=== PATIENT | female | born 1970 ===

== ENCOUNTER 2020-03-21 21:16 | Emergency (ER) | payer BC ==
[2020-03-21] MEDS ORDERED: Sodium Chloride 0.9% 300 ML IV ONE (21:17)
[2020-03-21] MEDS ORDERED: Sodium Chloride 0.9% 1,000 ML IV ONE (21:18)
[2020-03-21] MEDS ORDERED: EPINEPHrine 1 MG/1 ML Amp IVPUSH ONE (21:22)
[2020-03-21] MEDS ORDERED: EPINEPHrine 1:10,000 1 MG/10 ML Syringe ONE ×2 (21:22)
[2020-03-21] MEDS ORDERED: EPINEPHrine 1:10,000 1 MG/10 ML Syringe IVPUSH ONE (21:22)
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
== END 2020-03-22 21:35 | disposition expired ==
LOC: MERGE 21:16 → LL.ED 21:16
DX: I46.9 Cardiac arrest, cause unspecified (principal)
CPT/HCPCS: 92950; 99285; J0171; J7030